=== PATIENT | female | born 1975 | race Caucasian/White ===

== ENCOUNTER → 2017-11-15 08:38 | Outpatient (CLI) | payer MEDICAID, SELFPAY ==
--- NOTE | 2017-11-15 08:40 | RAD_ITS ---
STUDY: X-RAY - PELVIS AND LEFT HIP REASON FOR EXAM: Left hip pain for 1.5 years, no specific injury. TECHNIQUE: Radiological exam, hip, unilateral, with pelvis when performed; 2 or 3 views. COMPARISON: None. FINDINGS: There are small pelvic phleboliths. Normal bilateral iliac wings, sacroiliac joints and visualized sacrum. Normal bilateral superior and inferior pubic rami. There is narrowing with sclerosis of the pubic symphysis. Normal bilateral ischial tuberosities. Normal visualized left femoral head. Normal left acetabulum. Normal left hip joint. There is mild enthesopathy of the left greater trochanter. RAD/Hip 2-3 Views with Pelvis IMPRESSION: Narrowing with sclerosis of the pubic symphysis suggestive of osteitis pubis. Mild enthesopathy of the left greater trochanter. Electronically Signed: Oneal Klein MD at 10:52 EDT Tel , Service support ,
== END ==
PROVIDERS: Family Provider Nurse Practitioner Family; PCP Nurse Practitioner Family; Visit Provider Orthopaedic Surgery
DX: M25.552 Pain in left hip (principal)
CPT/HCPCS: 73502

== ENCOUNTER → 2018-12-09 11:07 | Outpatient (CLI) | payer MEDICAID, SELFPAY ==
[2018-12-09 10:51] VITALS: BMI 37.9
--- NOTE | 2018-12-09 11:09 | RAD_ITS ---
STUDY: X-RAY - LEFT KNEE REASON FOR EXAM: Female, 43 years old. Chronic knee pain. TECHNIQUE: 4 view(s) of the knee. COMPARISON: None. FINDINGS: Normal visualized distal femur. Normal visualized proximal tibia and fibula. Normal proximal tibiofibular articulation. Mild medial compartmental arthrosis. Normal lateral femorotibial compartment. Mild patellofemoral compartmental arthrosis. The soft tissue structures are unremarkable. RAD/Knee 4 or More Views IMPRESSION: Mild arthrosis of the medial and patellofemoral compartments. No acute finding. Electronically Signed: Clarence Singh MD at 12:09 EDT , Service support ,
== END ==
PROVIDERS: Family Provider Nurse Practitioner Family; PCP Nurse Practitioner Family; Referring Provider Orthopaedic Surgery; Visit Provider Orthopaedic Surgery
DX: M25.562 Pain in left knee (principal)
CPT/HCPCS: 73564

== ENCOUNTER → 2019-05-21 09:47 | Outpatient (CLI) | payer MEDICAID, SELFPAY ==
[2019-05-21 09:34] VITALS: BMI 37.9
--- NOTE | 2019-05-21 09:47 | RAD_ITS ---
STUDY: X-RAY - PELVIS AND BILATERAL HIPS REASON FOR EXAM: Low back pain. TECHNIQUE: AP view of the pelvis.? 2 views of the right hip, and 2 views of the left hip were obtained. COMPARISON: Radiographs 11/15/2017. FINDINGS: Normal visualized soft tissue structures. Normal bilateral iliac wings, sacroiliac joints and visualized sacrum. Normal bilateral superior and inferior pubic rami. There is narrowing and sclerosis of the pubic symphysis. Normal bilateral ischial tuberosities. Normal visualized right femoral head. Normal right acetabulum. Normal right hip joint. There is mild enthesopathy of the right greater trochanter. Normal visualized left femoral head. Normal left acetabulum. Normal left hip joint. There is mild enthesopathy of the left greater trochanter RAD/Hips B/L min 2 views w/ Pelvis IMPRESSION: Narrowing and sclerosis of the pubic symphysis as on the prior study suggestive of chronic osteitis pubis. Mild enthesopathy of the greater trochanters bilaterally. Electronically Signed: Oneal Klein MD at 11:56 EST Tel , Service support ,
--- NOTE | 2019-05-21 09:47 | RAD_ITS ---
STUDY: X-RAY - LUMBOSACRAL SPINE REASON FOR EXAM: Female, 43 years old. LBP TECHNIQUE: 6 view(s) of the lumbosacral spine were obtained. Including flexion-extension views COMPARISON: None FINDINGS: Normal lumbar lordosis. There is no substantial scoliosis. There is normal alignment of the vertebrae. No evidence of gross instability upon flexion and extension maneuvers Normal vertebral bodies and endplates. Normal disc space heights. Normal bilateral sacral ala, sacroiliac joints, and visualized sacrum. Normal visualized soft tissue structures. RAD/L/S Spine w Bend Min 6 Vw IMPRESSION: Normal x-ray examination of the lumbosacral spine. Electronically Signed: Yoel Escobedo MD at 19:55 EST , Service support ,
== END ==
PROVIDERS: Family Provider Nurse Practitioner Family; PCP Nurse Practitioner Family; Referring Provider Orthopaedic Surgery; Visit Provider Orthopaedic Surgery
DX: M79.604 Pain in right leg (principal)
CPT/HCPCS: 72114; 73521

== ENCOUNTER → 2019-09-24 14:02 | Outpatient (CLI) | payer MEDICAID, SELFPAY ==
[2019-09-24 13:46] VITALS: BMI 37.9
--- NOTE | 2019-09-24 14:02 | RAD_ITS ---
STUDY: X-RAY - RIGHT WRIST REASON FOR EXAM: Female, 43 years old. Pain medial wrist x 6 weeks TECHNIQUE: 4 view(s) of the wrist were obtained. COMPARISON: None. FINDINGS: Normal visualized distal radius and ulna. Normal radiocarpal articulation. Normal distal radioulnar articulation. Normal carpal bones. Normal carpal articulations. Normal carpometacarpal articulation of the thumb. Normal second through fifth carpometacarpal articulations. Normal visualized metacarpal bones. The soft tissue structures are unremarkable. RAD/Wrist min 3 Views IMPRESSION: Normal x-ray examination of the wrist. Electronically Signed: Munir Betancourt, at 14:35 EDT , Service support ,
== END ==
PROVIDERS: PCP Nurse Practitioner Family; Referring Provider Physician Assistant; Visit Provider Physician Assistant
DX: S62.101A Fracture of unspecified carpal bone, right wrist, initial encounter for closed fracture (principal); X58.XXXA Exposure to other specified factors, initial encounter
CPT/HCPCS: 73110

== ENCOUNTER → 2020-03-23 17:10 | Outpatient (CLI) | payer MEDICAID, SELFPAY ==
[2020-02-03 10:27] VITALS: BMI 37.9
--- NOTE | 2020-03-23 17:11 | MRI_ITS ---
STUDY: MRI RIGHT HIP REASON FOR EXAM: Female, 44 years old. RIGHT HIP PAIN, BURSITIS TECHNIQUE: Standardized fat and water weighted pulse sequences were obtained in all 3 orthogonal planes. COMPARISON: X-ray May 21, 2019 FINDINGS: There is mild articular narrowing of the hip joint, with less than 50% loss of the hyaline cartilage. There is lateral osteoarthritic spurring of the acetabular rim. Normal labrum. Normal femoral head. There is an enthesophyte involving the greater trochanter. There is no demonstrated fracture. Tendinosis of the gluteus minimus and medius. Normal iliopsoas tendon and distal insertion. There is trochanteric bursitis. Normal superior and inferior pubic rami. There is narrowing of the pubic symphysis with spurring. Normal ischial tuberosity. There is tendinosis of the origins of the hamstring tendons arising from the ischial tuberosity. Normal visualized iliac wing, sacroiliac joint, and sacral ala. Normal visualized soft tissue structures of the pelvis. MRI/Lower Ext Joint Only (Routine) IMPRESSION: No fracture or avascular necrosis. Mild degenerative change. Tendinosis of the gluteus medius and minimus with trochanteric bursitis. Tendinosis of the proximal hamstrings. Electronically Signed: Solo Grimm MD at 23:02 EST , Service support ,
--- NOTE | 2020-03-23 17:11 | MRI_ITS ---
STUDY: MRI LEFT KNEE REASON FOR EXAM: Female, 44 years old. Pain. TECHNIQUE: Standardized fat and water weighted pulse sequences were obtained in all 3 orthogonal planes. COMPARISON: X-ray March 04, 2020 FINDINGS: Medial meniscus tear of the anterior horn, series 3 images through . There is diffuse, greater than 50% thickness articular cartilage loss of the medial femorotibial compartment. There is mild osteoarthritic spur formation of the medial knee compartment. Normal medial collateral ligamentous complex (MCL). Normal distal semimembranosus, gracilis and semitendinosus tendons. Normal lateral meniscus. Normal hyaline cartilage of the lateral femorotibial compartment. Normal lateral femoral condyle and tibial plateau. Normal proximal tibiofibular articulation. Normal lateral collateral (fibular) ligament. Normal popliteus tendon. Normal biceps femoris tendon. Normal anterior cruciate ligament (ACL). Normal posterior cruciate ligament (PCL). There is arthrosis of the patellofemoral articulation. There is diffuse, greater than 50% thickness articular cartilage loss of the patellofemoral compartment. There is spurring and subchondral edema. Normal medial and lateral patellar retinaculum. Normal quadriceps tendon. Normal patellar tendon. Normal Hoffa''s fat pad. There is a small volume joint effusion. There is a 1.5 cm Gage''s cyst. The soft tissues are unremarkable. The otherwise visualized osseous structures are unremarkable. MRI/Lower Ext Joint Only (Routine) IMPRESSION: Medial meniscus tear. Degenerative change. Joint effusion with popliteal cyst. Electronically Signed: Solo Grimm MD at 22:55 EST , Service support ,
== END ==
PROVIDERS: PCP Nurse Practitioner Family; Referring Provider Orthopaedic Surgery; Visit Provider Orthopaedic Surgery
DX: M70.61 Trochanteric bursitis, right hip (principal); M70.62 Trochanteric bursitis, left hip; M25.562 Pain in left knee
CPT/HCPCS: 73721

== ENCOUNTER 2020-04-20 11:48 | Day surgery (SDC) | payer MEDICAID, SELFPAY ==
[2020-02-03 10:27] VITALS: BMI 37.9
[2020-04-20] VITALS (11 sets, daily range): BP systolic 132–165; BP diastolic 72–101; PULSE 59–78; RESP 16–18; TEMP 36.1–36.3; O2SAT 82–100; BMI 40.6
--- NOTE | 2020-04-20 09:00 | HP_ITS ---
I have re-examined the patient. There are no clinical changes since date of exam. Intake Intake Visit Reasons: knee pain Chief Complaint: Left Knee Allergies codeine Adverse Reaction (Intermediate, Verified 03/08/20 14:13) VOMITS [facility] Medical History DDD (degenerative disc disease) (Acute) Social History (Updated 03/29/20 @ 15:[address] Bhumi Florez, ) Smoking Status: Never smoker HPI knee pain: Surgical H&P: Yes Details: Parts of this documentation were recorded by a scribe, this documentation accurately reflects the service provided and the decisions made by me, Dr. Bhumi Florez, DO 03/29/20 1238. JAZMIN ESCOBEDO is a 44 year old F here today for F/U on left knee after having MRI of the knee completed. Patient continues to have left medial knee pain. Denies numbness, tingling or other associated symptoms.Has been wearing a OA web reaction knee brace. having pain in her right greater trochanter, failed multiple injections and has pain when laying on right side and doing activities of daily living. see chart. taking otc antiinflammatories as needed for pain. ROS Musc Reports system reviewed and no additional complaints, except as docu, Reports joint pain, Denies numbness, Reports stiffness, Denies tingling Skin/Breast Reports system reviewed and no additional complaints, except as docu, Denies dry skin, Denies redness, Denies lesions, Denies new lesions, Denies non-healing lesions, Denies itching, Denies rash, Denies skin ulcer, Denies sores, Denies wounds Neuro Yes system reviewed and no additional complaints, except as docu, No numbness, No tingling Ortho Exam General General: Yes no acute distress Neurologic: Yes alert, Yes oriented x3 Psychologic: Yes reasonable and appropriate Left Elbow Skin/Wound: No eccymosis, No erythema, No Swelling Test: Yes TTP Medial Epicondyle, Yes Tinel's ROM: Yes Flexion 0-140, Extension 0, Supination 0-90 and Pronation 0-80 Right Hip Skin: No Ecchymosis, No soft tissue swelling, No Erythema Special Tests: Yes IT band snap, Yes COLLEEN test, Yes TTP Greater Troch, Yes ITB tenderness Homans Sign: No Left Hip Skin/Wound: No Ecchymosis, No soft tissue swelling, No Erythema Hip: Absent eccymosis, soft tissue swelling or erythema Special Tests: Yes TTP Greater Troch and ITB tenderness Homans Sign: No Assessment & Plan Problems 1. Greater trochanteric bursitis of right hip M70.61 2. Iliotibial band syndrome of right side M76.31 3. Primary osteoarthritis of left knee M17.12 4. Tear of medial meniscus of left knee, current, unspecified tear type, subsequent encounter S83.242D Plan Personally reviewed patients MRI of the left knee. Patient educated that she has OA of the knee along with a medial meniscus tear. Treatment options are do nothing or PT or bracing or steroid injection or left knee scope for meniscectomy. Patient wishes to proceed with left knee injection. Patient educated that she has bursitis of the right hip. Treatment options are do nothing or injections or bursectomy. Patient wishes to proceed with right hip bursectomy along with left knee injection while she is under anesthesia. Reviewed the pre-operative plans with the patient. Risks and benefits of the procedure were fully explained, including but not limited to infection, neurovascular injury, continued pain, arthritis, stiffness, need for further surgery, re-injury, DVT, PE, general risks of anesthesia, and loss of limb or life. The patient understands all the risks and does wish to proceed with written consent for RIGHT hip arthroscopy for IT band release, greater troch bursectomy along with trephination with a LEFT knee intra-articular steroid injection. She will be off work for about 1 week. We discussed the current risk associated COVID-19. While it is understood that there is a community spread of COVID 19 the risk of manda COVID-19 while at [facility] is very low, however, the risk cannot be completely mitigated because of the community spread of the disease. We discussed in detail the risk of exposure to and or potential harm posed by the COVID-19 virus with having a surgery/procedure at this time versus the risk of delaying the surgery/procedure. Is not possible to know either the risk of delaying the surgery procedure or chance of getting an infection with perfect accuracy, but a joint decision was made to proceed at this time with a schedule surgery/procedure as indicated on the consent form. Patient was notified that we will need to comply with any screening or testing [facility] wishes to perform or that surgery may be delayed for any positive results. Follow up post op or sooner if pain, swelling, numbness or associated symptoms, or concerns develop. All questions answered. Patient in agreement of plan. Coding Level of Care Code Off vis,est,level 4 Diagnoses Greater trochanteric bursitis of right hip M70.61 Iliotibial band syndrome of right side M76.31 ??Laterality: right Primary osteoarthritis of left knee M17.12 Tear of medial meniscus of left knee, current, unspecified tear type, subsequent encounter S83.242D ??Encounter type: subsequent encounter ??Meniscus tear of knee type: unspecified type
[2020-04-20] MEDS: Lactated Ringers 1,000 ML 100 ML IV (12:30)
[2020-04-20] MEDS: Cefazolin 2 GM in 0.9% Normal Saline 100 ML IV (12:50)
--- NOTE | 2020-04-20 13:00 | RAD_ITS ---
STUDY: X-RAY - PELVIS AND RIGHT HIP REASON FOR EXAM: IT band release. TECHNIQUE: 2 intraoperative images of the right hip. COMPARISON: Radiographs 05/21/2019. FINDINGS: There is localization of the greater trochanter. 95 seconds of fluoroscopy time was used. Electronically Signed: Oneal Klein MD at 15:13 EST Tel , Service support , RAD/Hip 1 view with Pelvis
[2020-04-20] MEDS: Mupirocin Ointment 22gm Tube 1 APPLIC (13:28)
[2020-04-20] MEDS: Bupivacaine Mpf 0.5% 30 ML VIAL (13:28)
[2020-04-20] MEDS: Triamcinolone Acetonide 40 MG/ML Vial (14:00)
[2020-04-20] MEDS: Epinephrine (1 mg/ml) 1 MG/ML VIAL (14:16)
--- NOTE | 2020-04-20 14:16 | PCM.DC.ORTHO ---
Discharge Diet: No Restrictions - wbat right leg, remove dressings in 4-5 days and apply bandaids to incision sites, elevate toes above nose, ankle pumps, ice hip; call with concerns, reinforce dressing as needed Discharge Activity: May Not Drive May shower in (days): 1 Ice area for (Minutes): 20 - Every hour while awake. Weight Bearing Status: Weight bearing as tolerated Keep extremity elevated above heart level: Operative Extremity Call your doctor if your incision/area has: Continuous Slow Oozing, Sudden Increased Bleeding, Increased Pain/ Swelling, Increased Redness, Foul Smelling Discharge Call your doctor if you observe: Fever of 101 or Higher, Coldness, Increased Pain, Numbness or Tingling, Change in Color, Calf discomfort Allergies/Adverse Reactions: Allergies codeine Adverse Reaction (Intermediate, Verified 04/20/20 12:10) VOMITS Medications to take at Discharge Bupropion HCl [Wellbutrin Xl] 150 mg PO DAILY 04/12/20 Meloxicam 7.5 mg PO PRN PRN 04/12/20 traMADol [Ultram (G)] 50 mg PO Q6H PRN PRN 04/12/20 Ondansetron [Zofran] 8 mg PO Q8H PRN PRN #20 tab 04/20/20 Oxycodone HCl/Acetaminophen [Percocet 5/325] 1 - 2 tab PO Q6H PRN PRN 5 Days #28 tab 04/20/20 The following prescriptions were given: Oxycodone HCl/Acetaminophen [Percocet 5/325] 1 - 2 tab PO Q6H PRN PRN 5 Days #28 tab PRN Reason: Pain Transmission Status: Sent to [facility] Ondansetron [Zofran] 8 mg PO Q8H PRN PRN #20 tab PRN Reason: Nausea Transmission Status: Pending to [id number] Primary Care Physician: Trudy Salinas NP, TELEHEALTH CASE MANAGER-C [Primary Care Provider] - Test Results: Test results from this visit will be discussed in further detail at your follow-up appointment, if applicable. Please Follow Up With: Bhumi Florez, - [phone]
--- NOTE | 2020-04-20 14:18 | PCM.OPRPT ---
Report of Operation Date of Procedure: 04/20/20 Pre-Operative Diagnosis: right lateral trochanteric syndrome, left knee osteoarthritis Post-Operative Diagnosis: same Surgery/Procedure Performed:: right arthroscopic iliotibial band release/ bursectomy, trephination of greater trochanter, left knee intraarticular steroid injection business office director: Dennys Baxter Type of Anesthesia:: General Anesthesiologist: Christian Howell Fluids Replaced: 1100cc lr Description of Procedure: Preop note Patient is a 44-year-old male female with continued right lateral gross failure trochanteric pain. Recheck has had injections that did well for a while but now they are no longer helpful for her. MRI confirms bursitis of the right lateral hip. Risk benefits and alternatives were discussed with patient. Risk include but not move to blood loss, blood clot, infection, neurovascular, failure procedure, loss of life and loss of limb. Patient is aware like proceed with right IT band endoscopic arthroscopic IT band release bursectomy and trephination of the gluteus tendons as well as well as the greater troches. Maile Tolbert Operative note Patient seen and examined preop holding area. Right leg was marked. Patient brought to the operating room and placed supine on the operating table. Signed, anesthesia, antibiotics were administered. Right leg was prepped and draped in usual sterile technique. All bony prominences well-padded SCD placed on her contralateral limb. We used x-ray to ascertain the level of the greater troches with a 18-gauge spinal needle. We did that we did a were able to triangular cells and created our working portal from the inferior aspect. Able to then visualize our spinal needle and then remove the spinal needle we then inserted the spinal just proximal to this in order to ascertain the the extent of the IT band release. Please note that prior to placing our scope in the inferior most aspect we did use her to insufflate to get the IT band off of the greater trochanter with 30 cc of normal saline. Then performed our IT band we did abduct the leg slightly it in order to make the IT band more taut we then released it in standard technique. Sheet we then used a shaver to proceed to release the bursitis that was inferior to the IT band which was extensive. We then performed a trephination she had some sclerotic bone and a little bit of a ridge to her the inferior aspect of her greater troches was generally debrided as well. We also did trephination of the insertion where the gluteus medius minimus tendons were. We then irrigated to ensure that we had good we then visualized and internal extra rotation no further snapping or tightness of the IT band which we did not have. The portals were closed with interrupted 4-0 nylon stitches. Please note that we used p.o. multiple times throughout the case to ensure that we were releasing them both inferiorly and superiorly we did little bit of a stellate configuration to our release of the IT band and in order to prevent scarring of the IT band. Patient taught procedure well no complication transferred recovery in stable condition. Postoperative note She had extensive bursitis on over the greater trochs. [place] has pain medications Call with increased pain numbness tingling further issues arise Dragon disclaimer this note was generated with [email or web address] dictation software. It may contain incorrect words, spelling, and punctuation that were not noted in checking the note before signing.
== END 2020-04-20 18:38 | disposition home or self-care (01) ==
LOC: SDC 11:48 → AC 11:49
PROVIDERS: PCP Nurse Practitioner Family; Referring Provider Orthopaedic Surgery; Visit Provider Orthopaedic Surgery
PROC: (CPT 29860; principal; 2020-04-20 13:05)
DX: M70.61 Trochanteric bursitis, right hip (principal); M76.31 Iliotibial band syndrome, right leg; M17.12 Unilateral primary osteoarthritis, left knee; S83.242A Other tear of medial meniscus, current injury, left knee, initial encounter; X58.XXXA Exposure to other specified factors, initial encounter; Z20.828 Contact with and (suspected) exposure to other viral communicable diseases; Z88.5 Allergy status to narcotic agent
CPT/HCPCS: 20610; 29999; 73501; 76000; 87426; C9803; J2405

== ENCOUNTER → 2021-10-25 | Outpatient (CLI) | payer MEDICAID, SELFPAY ==
--- NOTE | 2021-10-25 06:42 | MRI_ITS ---
STUDY: MRI LEFT KNEE REASON FOR EXAM: Medial left knee pain. TECHNIQUE: Standardized fat and water weighted pulse sequences were obtained in all 3 orthogonal planes. COMPARISON: Radiographs 11/29/2020, MRI images 03/23/2020. FINDINGS: There is mild tear/degeneration of the free margin of the anterior horn of the medial meniscus (proton-density sagittal images 15-20) and posterior horn of the medial meniscus (T2 sagittal image 11). There is peripheral subluxation of the medial meniscus. There is arthrosis of the medial femorotibial compartment with small marginal osteophytes, subchondral eburnation and chondral loss (T2 sagittal image 9). There is interval development of subchondral bone edema of the medial femoral condyle and tibial plateau (T2 coronal images 15-21), a stress phenomenon. There is mild periligamentous inflammation of the medial collateral ligament (T2 coronal image 17). Normal distal semimembranosus, gracilis and semitendinosus tendons. Normal lateral meniscus. Normal hyaline cartilage of the lateral femorotibial compartment. Normal lateral femoral condyle and tibial plateau. Normal proximal tibiofibular articulation. Normal lateral collateral (fibular) ligament. Normal popliteus tendon. Normal biceps femoris tendon. Normal anterior cruciate ligament (ACL). Normal posterior cruciate ligament (PCL). Normal congruent patellofemoral articulation. There is high-grade chondromalacia of the medial patellar facet (T2 axial image 12). Normal medial and lateral patellar retinaculum. Normal visualized quadriceps tendon. Normal patellar tendon. Normal Hoffa''s fat pad. There is a minimal volume of fluid in the knee joint. There is a popliteal cyst measuring approximately 5.9 cm in length with extravasation of fluid in the coronal images 4-12). There is edema in the anterior subcutis adipose space. The otherwise visualized osseous structures are unremarkable. MRI/Lower Ext Joint Only (Routine) IMPRESSION: Mild tear/degeneration of the medial meniscus. Subchondral bone edema of the medial femoral condyle and medial tibial plateau, a stress phenomenon. Arthrosis of the medial femorotibial compartment. Chondromalacia patellae. Mild periligamentous inflammation of the medial collateral ligament. Popliteal cyst with extravasation of fluid. Electronically Signed: Oneal Klein MD at 9:48 EDT ,
== END | disposition home or self-care (01) ==
LOC: MRI 06:42
PROVIDERS: PCP Nurse Practitioner Family; Visit Provider Physician Assistant
DX: S83.222A Peripheral tear of medial meniscus, current injury, left knee, initial encounter (principal); M23.92 Unspecified internal derangement of left knee; X58.XXXA Exposure to other specified factors, initial encounter; M71.22 Synovial cyst of popliteal space [Baker], left knee; M17.12 Unilateral primary osteoarthritis, left knee; M22.42 Chondromalacia patellae, left knee
CPT/HCPCS: 73721

== ENCOUNTER → 2022-04-20 | Outpatient (CLI) | payer MEDICAID, SELFPAY ==
--- NOTE | 2022-04-20 17:44 | MRI_ITS ---
STUDY: MRI CERVICAL SPINE REASON FOR EXAM: Female, 46 years old. Pain TECHNIQUE: MRI examination cervical spine obtained was sent protocol including multiplanar multi echo noncontrast imaging. Contrast: No contrast administered. COMPARISON: 12/04/2013 FINDINGS: Vertebral bodies and alignment: 1. Vertebral body height is maintained, there is straightening of cervical lordosis, postoperative changes of anterior plate and screw fixation at C5-6. 2. No evidence of marrow edema or occult fracture or destructive marrow replacement process. 3. Body height and alignment are maintained. No evidence of marrow edema, fracture or subluxation. 4. Prevertebral soft tissue planes have normal appearance. 5. Normal appearance the odontoid process and alignment of the craniocervical junction. 6. Normal appearance the posterior muscular fascial planes of the cervical spine, and the posterior ligamentous support structure the cervical spine is intact. Intervertebral disc levels: C2-3: Normal endplates. Normal disc height, signal and morphology. Normal central canal and intervertebral neural foramina. C3-4: Mild disc desiccation, minimal disc bulge and osteophyte, no canal or foraminal narrowing. C4-5: Disc desiccation, no evidence disc herniation canal or foraminal narrowing. C5-6: Postoperative changes with interbody fusion anterior plate and screw fixation. No disc herniation canal or foraminal narrowing. C6-7: Disc desiccation, mildly eccentric disc bulge/protrusion osteophyte complex greater on LEFT than RIGHT. There is deformity the anterior epidural space, central thecal sac is maintained at approximately 8 mm. There is deformity LEFT lateral recess and LEFT neural foramen. There is potential of early impingement of the LEFT C7 nerve root within the LEFT neural foramen. C7-T1: No disc herniation or canal stenosis. There is narrowing of the LEFT neural foramen due to osteophyte formation, early impingement of the emerging LEFT C8 nerve roots suspected. Spinal CORD: Spinal cord has normal configuration, there is contact and mild displacement of the cord at C6-7 level however no evidence cord compression or edema. No evidence of intramedullary signal abnormality or syrinx. Normal appearance of the cervical medullary junction. MRI/Spine Cervical (Routine) IMPRESSION: 1. Postop changes of interbody fusion anterior fixation at C5-6. 2. No evidence of marrow edema, fracture or destructive marrow replacement process. 3. Mildly eccentric disc bulge/minimal eccentric protrusion osteophyte complex greater on the LEFT than RIGHT. Mild canal narrowing with mild cord displacement without evidence of acute cord compression. 4. There is narrowing of lateral recess and LEFT neural foramen at the C6-7 level with potential early LEFT C7 nerve root impingement. 5. Osteophyte formation deforms the LEFT neural foramen at C7 8 with potential early LEFT C8 nerve root impingement. 6. Mild cervical spondylosis at remaining levels. 7. Normal appearance the spinal cord, minimal cord displacement at C6-7 without evidence of cord compression or intramedullary signal abnormality. Electronically Signed: Krzysztof Aguirre MD at 20:17 EST ,
== END | disposition home or self-care (01) ==
LOC: MRI 17:44
PROVIDERS: PCP Nurse Practitioner Family; Referring Provider Orthopaedic Surgery; Visit Provider Orthopaedic Surgery
DX: M54.12 Radiculopathy, cervical region (principal)
CPT/HCPCS: 72141